=== PATIENT | male | born 1995 | race Caucasian/White ===

== ENCOUNTER 2023-06-05 10:29 | Emergency (ER) | payer OTHER, SELFPAY ==
[2023-06-05 10:57] VITALS: BP 98/70; PULSE 99; RESP 16; TEMP 37.6; O2SAT 98
--- NOTE | 2023-06-05 11:21 | ED.URI ---
HPI - URI/Sore Throat General Chief Complaint: Upper Respiratory Infection Stated Complaint: sorethroat Time Seen by Provider: 06/05/23 11:21 Source: patient Mode of arrival: ambulatory Limitations: no limitations History of Present Illness HPI Narrative: 27-year-old male presents with complaint of sore throat, swollen tonsils, fatigue, body aches, fever for 2 days. Reports difficulty swallowing due to swelling. Patient speaking full sentences, no respiratory distress. All systems reviewed and negative except as noted above. Related Data Allergies Allergy/AdvReac Type Severity Reaction Status Date / Time No Known Allergies Allergy Verified 06/05/23 11:09 Review of Systems Review of Systems: CONSTITUTIONAL: reports fever, chills, or sweats. EYES: Denies visual changes, redness, or discharge. ENT: Denies rhinorrhea, congestion Reports sore throat and swelling. Denies otalgia. CARDIOVASCULAR: Denies chest pain, palpitations, or edema. RESPIRATORY: Denies cough or dyspnea. GASTROINTESTINAL: Denies abdominal pain, nausea, vomiting, or diarrhea. GENITOURINARY: Denies dysuria or hematuria. SKIN: Denies rash or itching. MUSCULOSKELETAL: Denies back pain, joint pain, or myalgia. NEUROLOGIC: Denies headache, numbness, or weakness. PSYCHIATRIC: Denies anxiety or depression. All other systems reviewed are negative, except as documented in HPI. PMFSH Comments At time of signature, agree with nursing past medical, surgical, social and family history. There is no relevant family history pertinent to the presenting complaint. Exam Narrative: GENERAL: This is a well-nourished, well-developed patient, in no apparent distress. HEAD: normocephalic, atraumatic. EYES: PERRL. Sclera clear/white. Vision is grossly intact. EARS: External ears normal, auditory canals clear and without drainage, TMs normal without perforation. Hearing grossly intact. NOSE: External nose normal with no obvious nasal discharge, nares without redness, no rhinorrhea. THROAT: Mucous membranes moist, tonsils 3+ bilaterally with erythema and exudates. NECK: Neck supple, non-tender without lymphadenopathy, masses or thyromegaly. CARDIOVASCULAR: Regular rate and rhythm without murmurs, gallops, or rubs. RESPIRATORY: Clear to auscultation. Breath sounds equal bilaterally. No wheezes, rales, or rhonchi. SKIN: warm, Dry, intact with no suspicious lesions or rash, good texture and turgor. NEURO: awake, alert, and oriented to person, place and time. There were no obvious focal neurologic abnormalities. EXTREMITIES: No joint tenderness, effusion, or edema noted. Course Course Level of Care: Express Care Visit Vital Signs Vital signs: Vital Signs Temperature 37.6 C 06/05/23 10:57 Pulse Rate 99 06/05/23 10:57 Respiratory Rate 16 06/05/23 10:57 Blood Pressure 98/70 L 06/05/23 10:57 Pulse Oximetry 98 06/05/23 10:57 Oxygen Delivery Room Air 06/05/23 10:57 Temperature 37.6 C 06/05/23 10:57 Pulse Rate 99 06/05/23 10:57 Respiratory Rate 16 06/05/23 10:57 Blood Pressure 98/70 L 06/05/23 10:57 Pulse Oximetry 98 06/05/23 10:57 Oxygen Delivery Room Air 06/05/23 10:57 At time of signature, agree with nursing past medical, surgical, social and family history. There is no relevant family history pertinent to the presenting complaint. MDM - URI/Sore Throat MDM Narrative Medical decision making narrative: Negative strep and mono test. Will treat patient with antibiotic due to exam findings. Patient is aware of diagnosis, understands and agrees to treatment plan. Anticipatory guidance given. Patient agrees to follow-up as directed and is aware of reasons to seek care at the emergency department. Portions of this record may have been created with voice recognition software Differential Diagnosis Differential diagnosis: Likely pharyngitis Lab Data Labs: Strep Screen Presumptive Negativ
== END 2023-06-05 11:50 | disposition home or self-care (01) ==
PROVIDERS: Emergency Provider Nurse Practitioner Family
DX: J03.90 Acute tonsillitis, unspecified (principal)
CPT/HCPCS: 36416; 86308; 87081; 87880; 99213; G0463

== ENCOUNTER 2023-06-24 11:37 | Emergency (ER) | payer OTHER, SELFPAY ==
--- NOTE | 2023-06-24 11:41 | ED.URI ---
HPI - URI/Sore Throat General Chief Complaint: Upper Respiratory Infection Stated Complaint: Sore Throat,Headache Time Seen by Provider: 06/24/23 11:41 Source: patient Mode of arrival: ambulatory Limitations: no limitations History of Present Illness HPI Narrative: Boni is a 27-year-old male patient presenting to clinic today with complaints of low grade fever, sore throat and headache x 3 weeks. He reports he was seen in the urgent care 2 times prior for this and was given prescription for azithromycin and a Medrol Dosepak-he did not get strep testing or moderate testing at that time. After fishing this steroids and antibiotics the symptoms persisted so he he returned to another urgent care and strep and mono test was performed and was negative. Was diagnosed with tonsillitis and given prescription for prednisone and amoxicillin at that time. He is on his last day of amoxicillin and it feels as though his throat is getting worse. He reports that his throat was so swollen he is having difficulty breathing at times. MD elicited complaint: sore throat and other (Headache) Related Data Home Medications Medication Instructions Recorded Confirmed No Home Medications 06/24/23 06/24/23 Allergies Allergy/AdvReac Type Severity Reaction Status Date / Time No Known Allergies Allergy Verified 06/24/23 11:38 Review of Systems Review of Systems: Pertinent positives per HPI. Patient denies any rash, visual changes, dizziness, cough, shortness of breath, chest pain, palpitations, nausea, vomiting, diarrhea, constipation, abdominal pain, or any urinary issues. PMFSH Comments At the time of my signature, I reviewed and agree with the nursing past medical, surgical, social, and family history. There is no relevant family history pertinent to the patient complaint. Exam Narrative: General: Well-developed, well nourished, in no apparent distress Head: Normocephalic, atraumatic Eyes: Pupils equally round and reactive to light bilaterally, EOM intact, sclera and conjunctive clear, no discharge, lids normal Ears: TMs intact and clear, ear canals clear, no drainage, grossly hearing normal. Nose: Nares patent, clear nasal discharge, no inflammation, no sinus tenderness. Mouth: Oral pharynx red with bilateral tonsillar swelling-left greater than right with yellow exudate noted to the left tonsil with severe swelling, slight deviation to the left to uvula with rise and fall, questionable left peritonsillar abscess, good dentition, MMM. Neck: Supple, trachea midline, enlargement of left anterior cervical nodes, no thyroid masses or goiter palpable. Cardio: Regular rate and rhythm, s1 and s2 normal, no murmur appreciated. Resp: Clear to auscultation bilaterally, no rhonchi, rales, wheezing or rubs Course Course Emergency Course: Portions of this record may have been created with voice recognition software. Level of Care: Express Care Visit Vital Signs Vital signs: Vital signs reviewed MDM - URI/Sore Throat MDM Narrative Medical decision making narrative: At the time of visit patient is resting on the exam table. Bleckley testing was performed and negative in the clinic. Uvula is slightly deviated to the left with rise and fall of the uvula. Patient has yellow exudate to the left tonsil with anterior cervical lymphadenopathy-suspected left peritonsillar abscess. Recommend transfer to the emergency room for further evaluation. Patient agrees to transfer via private car. Contacted Kathy-physician's gynecological assistant at [facility] and report was given for continuity of care and she accepts patient for transfer. Differential Diagnosis Differential diagnosis: Likely viral infection, pharyngitis (Peritonsillar abscess) and other (Strep, mono) Discharge Plan Discharge Clinical Impression: Acute tonsillitis Qualifiers: Pharyngitis/tonsillitis etiology: unspecified etiology Qualified Code(s): J03.90 - Acute tonsillitis, unspecified
[2023-06-24 11:45] VITALS: BP 137/71; PULSE 89; RESP 16; TEMP 37.3; O2SAT 98
== END 2023-06-24 12:05 | disposition short-term general hospital (02) ==
LOC: EXPTROY 11:40
PROVIDERS: Emergency Provider Nurse Practitioner Family
DX: J03.90 Acute tonsillitis, unspecified (principal)
CPT/HCPCS: 36416; 86308; 99213; G0463

== ENCOUNTER 2023-06-24 12:24 | Emergency (ER) | payer OTHER, SELFPAY ==
--- NOTE | ~2023-06-24 | CT_ITS ---
EXAMINATION: CT soft tissue neck w con DATE: 06/24/2023 14:18 INDICATION: Sore throat. TECHNIQUE: Computed tomography (CT) of the neck was performed with 75 mL Omnipaque-350 intravenous co ntrast. Automated exposure control and iterative reconstruction technique were employed. The dose-gabriela gth product was 646.79 mGy-cm. COMPARISON: None FINDINGS: There is mild mucosal thickening in the paranasal sinuses. There is enlargement of the pilot point zachary tonsils, left worse than right. In the left palatine tonsil, there is central low attenuation me asuring 2.6 x 1.2 cm, consistent with peritonsillar abscess. There are enlarged bilateral internal ju gular chain lymph nodes and left-sided superficial lymph nodes. For example, a node at the junction o f the left high and mid internal jugular chains measures 2.0 x 1.3 cm. The internal jugular veins are patent. The cervical carotid arteries are normal. There is minimal cervical spondylosis. IMPRESSION: 1. Left-sided peritonsillar abscess. 2. Cervical lymphadenopathy, left worse than right, likely reactive. Reviewed, dictated and finalized at location E.
[2023-06-24 12:29] VITALS: BP 151/77; PULSE 84; RESP 16; TEMP 37.1; O2SAT 98
[2023-06-24 12:41] LABS: Basophils Absolute Auto 0.1 K/mm3 (0.0-0.1); Basophils Percent Auto 0.5 % (0.2-1.2); Eosinophils Absolute Auto 0.1 K/mm3 (0-0.3); Eosinophils Percent Auto 0.6 % (0-4.4); Hematocrit 46.5 % (42.0-52.0); Hemoglobin 15.6 g/dL (14.0-18.0); Immature Granulocyte Absolute 0.04 K/mm3 (0.00-0.031); Immature Granulocyte Percent A 0.3 % (0-0.5); Lymphocytes Absolute Auto 1.33 K/mm3 (0.9-3.2); Lymphocytes Percent Auto 11.4 % (18.3-44.2); Mean Corpuscular HGB Conc 33.5 g/dl (32-36); Mean Corpuscular Hemoglobin 30.8 pg (26-34); Mean Corpuscular Volume 91.9 fl (80-100); Mean Platelet Volume 10.8 fl (7.4-10.4); Monocytes Absolute Auto 0.7 K/mm3 (0.1-0.6); Neutrophils Absolute Auto 9.4 K/mm3 (1.3-6.7); Neutrophils Percent Auto 81.2 % (45.5-73.1); Platelet Count Result 197 k/mm3 (150-375); Red Blood Count 5.06 M/mm3 (4.6-6.20); Red Cell Distribution Width 14.1 % (11.5-14.5); White Blood Count 11.6 K/mm3 (4.5-10.0)
[2023-06-24 12:50] LABS: Alanine Aminotransferase 41 U/L (6-50); Albumin Level 4.7 g/dL (3.5-5.1); Alkaline Phosphatase 50 U/L (38-126); Anion Gap 8 mmol/L (8-16); Aspartate Amino Transferase 33 U/L (17-59); Bilirubin,Total 1.2 mg/dL (0.2-1.3); Blood Urea Nitrogen 11 mg/dL (9-20); Calcium 9.6 mg/dL (8.4-10.2); Carbon Dioxide 26 mmol/L (22-30); Chloride 104 mmol/L (98-107); Estimated CRCL calculation 101 ml/min; Estimated Glomerular Filt Rate > 60; Glucose 92 mg/dL (65-110); Potassium 4.8 mmol/L (3.4-5.0); Sodium 138 mmol/L (137-145)
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
[2023-06-24] MEDS: cefTRIAXone 2 GM/NS 100 ML 2 GM/100 ML BAG IVPB (14:52)
[2023-06-24] MEDS: LACTATED RINGERS 1,000 ML 999 ML IV CONT (15:37)
[2023-06-24] MEDS: CLINDAMYCIN 600 MG/D5W 50 ML 600 MG/50 ML PIGGYBACK 100 MG IVPB (15:37)
[2023-06-24] MEDS: KETOROLAC 15 MG/ML VIAL (*BKC) IV PUSH (16:12)
[2023-06-24] MEDS: fentaNYL CITRATE INJ (*CRX) 100 MCG/2 ML VIAL 50 MCG IV PUSH (16:13)
[2023-06-24 16:15] VITALS: BP 160/84; PULSE 100; RESP 16; O2SAT 100
[2023-06-24 16:55] VITALS: BP 135/71; PULSE 80; RESP 18; O2SAT 98
== END 2023-06-24 16:57 | disposition home or self-care (01) ==
PROVIDERS: Emergency Provider Emergency Medicine
DX: J36 Peritonsillar abscess (principal)
CPT/HCPCS: 36415; 36416; 41800; 42999; 70491; 80053; 85025; 86308; 96365; 96367; 96375; 99284; A9270; J0696; J1100; J1885; J3010; J7120; Q9967